=== PATIENT | female | born 1970 | race Caucasian/White ===

== ENCOUNTER → 2025-07-24 08:08 | Outpatient (CLI) | payer OTHER, SELFPAY ==
--- NOTE | 2025-07-24 08:09 | DI.US.S_ITS ---
PROCEDURE: US PELVIC COMPLETE INDICATIONS: postmenopausal bleeding TECHNIQUE: Real-time scanning was performed of the pelvic organs, with image documentation. Additional endovaginal scanning was necessary due to incomplete visualization of the adnexal and endometrial structures by transabdominal scanning. COMPARISON: None. FINDINGS: Uterus: Uterus is anteverted and normal in size at 9.3 x 3.4 x 4.6 cm. The myometrium is heterogeneous with 1.6 x 1.3 x 1.1 centimeter right posterior intramural fibroid. The endometrium measures 1.7 mm combined thickness. No endometrial mass. Ovaries: The right ovary measures 0.7 x 2.0 x 1.7 cm, with a calculated ovarian volume of 1.2 cc. The left ovary measures 0.8 x 1.7 x 1.8 cm, with a calculated ovarian volume of 1.4 cc. The ovaries have a normal sonographic appearance. Less than 12 follicles can be seen in each ovary. No adnexal masses are seen. Other: No pathologic free abdominal or pelvic fluid. IMPRESSION: Small 1.6 x 1.3 x 1.1 centimeter uterine fibroid. Otherwise, unremarkable pelvic ultrasound. Dictated by: Brittany Arriola MD, PhD on 07/25/2025 at 9:21 Approved by: Brittany Arriola MD, PhD on 07/25/2025 at 9:29
== END ==
PROVIDERS: PCP Nurse Practitioner; Referring Provider Obstetrics & Gynecology; Visit Provider Obstetrics & Gynecology
DX: N95.0 Postmenopausal bleeding (principal); D25.1 Intramural leiomyoma of uterus
CPT/HCPCS: 76830; 76856